=== PATIENT | male | born 1975 | race African-American/Black ===

== ENCOUNTER 2021-03-04 15:05 | Emergency (ER) | payer BC ==
[~2021-03-04] VITALS: Ht 182.9 cm; Wt 122.5 kg
[2021-03-04] MEDS ORDERED: NOVOLOG100 UNIT/M SUBQ (15:16)
[2021-03-04] MEDS ORDERED: LEVEMIR100 UNIT/1 SUBQ (15:17)
[2021-03-04] MEDS ORDERED: BUPROPION XL300 MG PO (15:18)
[2021-03-04] MEDS ORDERED: PROTONIX40 M2 PO (15:18)
[2021-03-04] MEDS ORDERED: METFORMIN HCL500 M3 PO (15:19)
[2021-03-04] MEDS ORDERED: BUSPIRONE HCL7.5 MG PO (15:19)
[2021-03-04] MEDS ORDERED: VALSARTAN160 MG PO ×2 (15:19→17:08)
[2021-03-04 15:37] LABS: BASOPHILS 0.5 % (0.0-2.0); EOSINOPHILS 1.8 % (0.0-3.0); HEMATOCRIT 46.9 % (42.0-52.0); HEMOGLOBIN 16.3 gm/dL (14.0-18.0); LYMPHOCYTES 26.2 % (24.0-44.0); MCHC 34.7 g/dL (28.0-37.0); MONOCYTES 7.2 % (1.0-8.0); PLATELET COUNT 246 thou/uL (150-400); POLYS 64.3 % (36.0-66.0); RBC 5.09 mil/uL (4.50-6.00); RDW 12.9 % (10.5-14.5); WBC 7.8 thou/uL (4.0-11.0)
[2021-03-04 15:41] LABS: ANION GAP 8 mmol/L (7-16); BUN 16 mg/dL (7-18); CALCIUM 8.7 mg/dL (8.5-10.1); CHLORIDE 105 mmol/L (98-107); CO2 26 mmol/L (21-32); CREATININE 1.4 mg/dL (0.7-1.3); GLUCOSE 138 mg/dL (74-106); SODIUM 139 mmol/L (136-145)
[2021-03-04 15:51] LABS: ALBUMIN 3.9 g/dL (3.4-5.0); SGOT 50 U/L (15-37); SGPT 113 U/L (16-63); TOTAL BILIRUBIN 0.5 mg/dL (0.2-1.0); TOTAL PROTEIN 6.8 g/dL (6.4-8.2); TROPONIN-I <0.06 ng/mL (<0.06)
--- NOTE | 2021-03-04 16:04 | EKG ---
[place] [id number] [facility] [place] [address] ELECTROCARDIOGRAM REPORT Name: CYNDIE MORRIS James[place] Room #: REG [facility] [id number] Admission: 03/04/21 Attend Phys: Discharge: Date of : 71 Report #: [id number] [facility] ED Test Date: 2021-03-04 Test Time: 15:27:01 Pat Name: CYNDIE MORRIS Department: Room: Gender: Junior Staff Accountant: SRINI : 1975 Requested By: Rodrigo Lentz Order Number: [id number] MD: Sherman Muñoz Measurements Intervals [place] Rate: 86 P: 33 MS: 155 QRS: 20 QRSD: 96 T: 37 QT: 367 QTc: 439 Interpretive Statements Sinus rhythm Probable left atrial enlargement No previous ECG available for comparison Electronically Signed On 03-04-2021 16:04:30 CDT by Sherman Muñoz [email or web address] <ELECTRONICALLY SIGNED> By: Sherman Muñoz MD, [facility] 03/04/21 1604 1527 1527 Sherman Muñoz MD, FACC /EPI
[2021-03-04] MEDS ORDERED: LASIX 40 MG TAB40 MG PO (16:24)
[2021-03-04 17:20] VITALS: BP 187/111
== END 2021-03-04 17:20 | disposition home or self-care (01) ==
LOC: ER 15:05
PROVIDERS: Emergency Medicine
DX: I10 Essential (primary) hypertension (principal); E11.9 Type 2 diabetes mellitus without complications; Z79.4 Long term (current) use of insulin; Z79.1 Long term (current) use of non-steroidal anti-inflammatories (NSAID); Z79.899 Other long term (current) drug therapy